=== PATIENT | male | born 1970 | race Caucasian/White ===

== ENCOUNTER → 2021-07-08 | Day surgery (SDC) | payer OTHER ==
[~2021-07-08] VITALS: Ht 167.6 cm; Wt 68.0 kg
[~2021-07-08] MED LIST: ALLEGRA ALLERG180 MG PO; AMOXICILLIN500 MG PO; AZELASTINE205.5 MCG/; BENADRYL12.5 MG/5 PO; FLONASE ALLER15.8 ML; HUMULIN R100 UNIT/1 SC; MOTRIN600 MG PO; PRILOSEC20 MG PO; SINGULAIR10 MG PO; TRESIBA FL100 UNIT/1 SC
[2021-07-08 07:30] LABS: EOSINOPHIL 1.9 % (0-5); HCT 44.3 % (42.0-52.0); LYMPHOCYTE 30.1 % (15-48); MCH 30.3 pg (25.0-31.0); MCHC 33.9 g/dL (32.0-36.0); MCV 89.5 fL (78.0-100.0); MONOCYTE 7.5 % (0-12); MPV 9.3 fL (6.0-9.5); NEUTROPHIL 59.2 % (41-80); NRBC 0; PLT 239 K/uL (150-400); RBC 4.95 M/uL (4.70-6.00); RDW 13.1 % (11.5-14.0); WBC 11.5 K/uL (4.0-10.5)
[2021-07-08 07:46] LABS: ALBUMIN 3.8 g/dL (3.4-5.0); BILIRUBIN - TOTAL 0.3 mg/dL (0.2-1.0); BUN/CREAT RATIO (CALC) 17.3 RATIO; CREATININE 0.75 mg/dL (0.67-1.17); GLOBULIN (CALCULATION) 3.4 g/dL; POTASSIUM 4.5 mmol/L (3.5-5.1); TOTAL PROTEIN 7.2 g/dL (6.4-8.2)
== END | disposition home or self-care (01) ==
LOC: FAS 06:50
PROVIDERS: Oral & Maxillofacial Surgery
DX: K02.9 Dental caries, unspecified (principal); K04.7 Periapical abscess without sinus; E10.9 Type 1 diabetes mellitus without complications; K21.9 Gastro-esophageal reflux disease without esophagitis
CPT/HCPCS: 36415; 71045; 80053; 82962; 85025; 93005; J1100; J2250; J2405; J2704; J3010; J7120